=== PATIENT | male | born 1955 | race Caucasian/White ===

== ENCOUNTER → 2017-07-16 | Outpatient (CLI) | payer OTHER ==
--- NOTE | 2017-07-16 13:06 | RADIOLOGY REPORT PS360 ---
HIP LT 2-3V W/PELVIS IF PERFOR HISTORY: LT HIP PAIN, ACUTE LT LBP WITH SCIATICA ORDERING PHYSICIAN: Stephanie Wyman APRN PATIENT AGE: 61 years COMPARISON: None FINDINGS: No fracture or dislocation is evident. No significant degenerative change. No lytic or blastic change. Unremarkable soft tissues. There are generalized vascular calcifications. There is an os acetabulum on both sides as a variant of normal. IMPRESSION: Negative left hip
--- NOTE | 2017-07-16 13:48 | RADIOLOGY REPORT PS360 ---
EXAM: LUMBAR SPINE 5 VIEWS HISTORY: LT HIP PAIN, ACUTE LT LBP WITH SCIATICA ORDERING PHYSICIAN: Stephanie Wyman APRN PATIENT AGE: 61 years COMPARISON: None FINDINGS: There is normal alignment. No acute fracture or dislocation evident. Mild endplate osteophytes are present from L2 to S1 with slight decrease in the disc space at L4-L5. No lytic or blastic change. Incidental vascular calcifications are present within the aortoiliac vessels. IMPRESSION: 1. Mild lumbar spondylosis with mild degenerative disc disease at L4-5. 2. Atherosclerotic changes
== END ==
LOC: RAD 12:03
DX: M25.552 Pain in left hip (principal); M54.42 Lumbago with sciatica, left side

== ENCOUNTER → 2017-07-27 | Outpatient (CLI) | payer OTHER ==
[~2017-07-27] MED LIST: ALBUTEROL0.63 MG/3 IH; ALPRAZOLAM0.5 M3 PO; BACTRIM DS 8001 TA1 PO; HYDROCODONE1 TABLET PO; LISINOPRIL-HYDR1 TA2 PO; LISINOPRIL20 MG PO; LORTAB 5/3251 TAB PO; PREDNISONE 20MG20 MG PO; SERTRALINE 50MG50 MG PO; VENTOLIN H0.09 MG/Ac IH; ZITHROMAX Z-PA250 M1 PO
--- NOTE | 2017-07-27 13:54 | CARDIOVASCULAR REPORT ---
"Venous Exam Indications: 729.5 Pain in limb. IMPRESSIONS 1. There is no evidence of significant Reflux. 2. No evidence of deep or superficial vein thrombosis involving the left lower extremity History: Left lower extremity pain. Left lower extremity venous duplex evaluation. Doppler flow study including spectral analysis, color and anguiano scale imaging. Location: Vascular laboratory. Patient status: Outpatient. Tables: Venous flow and imaging: + +-------+ + |Location |Overall|Flow properties | + +-------+ + |Left common femoral |Patent |Normal phasicity; spontaneous; | | | |normal augmentation; compressible | + +-------+ + |Left saphenofemoral junction|Patent |Compressible | + +-------+ + |Left profunda femoral |Patent |Compressible | + +-------+ + |Left femoral |Patent |Normal phasicity; spontaneous; | | | |normal augmentation; compressible | + +-------+ + |Left greater saphenous |Patent |Normal phasicity; spontaneous; | | | |normal augmentation; compressible | + +-------+ + |Left popliteal |Patent |Normal phasicity; spontaneous; | | | |normal augmentation; compressible | + +-------+ + |Left posterior tibial |Patent |Compressible | + +-------+ + |Left peroneal |Patent |Compressible | + +-------+ + |Left gastrocnemius |Patent |Compressible | + +-------+ + |Left soleal |Patent |Compressible | + +-------+ + (Report amended ) Electronically signed by: Dutch Aldrich [id number]"
== END ==
LOC: RT 13:29
DX: R52 Pain, unspecified (principal); M79.605 Pain in left leg; R20.0 Anesthesia of skin

== ENCOUNTER → 2017-08-08 | Outpatient (CLI) | payer OTHER ==
--- NOTE | 2017-08-08 12:21 | CARDIOVASCULAR REPORT ---
"Arterial Exam Indications: PVD 433.9. 729.5 Pain in limb. Perpiheral arterial disease 443.9. IMPRESSIONS 1. Study suggests greater than 60% stenosis involving the left femoral artery 2. Study suggests less than 60% stenosis involving the right common femoral artery and the right femoral artery History: Left lower extremity pain. Claudication. Risk factors: Former smoker - years since quittinyr. Hypertension. Prior angiography/angioplasty. Labs, prior tests, procedures, and surgery: Peripheral stent ( right). Labs, prior tests, procedures, and surgery: Peripheral stent ( right). Bilateral lower extremity arterial duplex. Duplex scan and ankle-brachial indices. Height: Height: 175.3cm. Height: 69in. Weight: Weight: 93kg. Weight: 204.6lb. Body mass index: BMI: 30.3kg/m^2. Body surface area: BSA: 2.15m^2. Patient status: Outpatient. Tables: Arterial flow: + +--------+--------+ + |Location |V sys |V ed |Flow analysis| + +--------+--------+ + |Left common femoral |147cm/s |20.2cm/s|Triphasic | + +--------+--------+ + |Left deep femoral - proximal |57.3cm/s|--------|Biphasic | + +--------+--------+ + |Left femoral - proximal |260cm/s |--------|Triphasic | + +--------+--------+ + |Left femoral - mid |88.7cm/s|--------|Triphasic | + +--------+--------+ + |Left femoral - distal |92cm/s |--------|Biphasic | + +--------+--------+ + |Left popliteal - proximal |93.6cm/s|--------|Biphasic | + +--------+--------+ + |Left popliteal - distal |95cm/s |11.9cm/s|Monophasic | + +--------+--------+ + |Left posterior tibial - proximal |79.6cm/s|--------|Biphasic | + +--------+--------+ + |Left posterior tibial - mid |110cm/s |--------|Biphasic | + +--------+--------+ + |Left posterior tibial - distal |64.2cm/s|--------|Biphasic | + +--------+--------+ + |Left peroneal - distal |59.4cm/s|--------|Biphasic | + +--------+--------+ + |Right common femoral |192cm/s |18cm/s |Triphasic | + +--------+--------+ + |Right deep femoral - proximal |141cm/s |15.7cm/s|Triphasic | + +--------+--------+ + |Right femoral - proximal |156cm/s |18cm/s |Triphasic | + +--------+--------+ + |Right femoral - mid |113cm/s |25.8cm/s|Triphasic | + +--------+--------+ + |Right femoral - distal |134cm/s |--------|Triphasic | + +--------+--------+ + |Right popliteal - proximal |69.6cm/s|--------|Monophasic | + +--------+--------+ + |Right popliteal - distal |61.7cm/s|--------|Monophasic | + +--------+--------+ + |Right posterior tibial - proximal|83.1cm/s|--------|Monophasic | + +--------+--------+ + |Right posterior tibial - mid |83.1cm/s|--------|Biphasic | + +--------+--------+ + |Right posterior tibial - distal |77.5cm/s|--------|Biphasic | + +--------+--------+ + |Right peroneal - distal |53.9cm/s|--------|Monophasic | + +--------+--------+ + TANIA and Stress table: +--------+ |Stage | +--------+ |Baseline| +--------+ (Report amended ) Electronically signed by: Dutch Aldrich [id number]"
--- NOTE | 2017-08-08 16:55 | RADIOLOGY REPORT PS360 ---
ARTERIAL/ABO-XBHRSEYOMIO-BKG CLAUDICATION, former smoker, hypertension, hyperlipidemia, peripheral vascular disease, leg pain, bilateral rest pain and claudication ORDERING PHYSICIAN: Kalli Shane MD PATIENT AGE: 61 years TECHNIQUE: Segmental pressures obtained of both right and left leg. These are compared to brachial blood pressure to yield index at each level sampled including summary TANIA. The data sheets from the procedure are available in PACS FINDINGS Rest study only performed today No prior studies available for comparison. Blood pressures reported are in millimeters mercury. RIGHT LEG TANIA = 1.2. Brachial BP: 137 Thigh BP: 211 Calf BP: 200 Ankle PT: 213 Ankle DP : 173 Digit =86 LEFT LEG TANIA = 1.1 Brachial BPD: 180 Thigh BP: 191 Calf BP: 192 Ankle PT:202 Ankle DP: 160 Digit = 165 Pulses and waveforms: Abnormal due to motion There is blood pressure discrepancy seen between the left and right arms at the end the exam the right arm blood pressure is 155/102 and left arm blood pressure is 144/98. Initially there was a 40 3. Difference. Please correlate in office. If there remains a discrepancy then, CT angiogram of the aortic arch and subclavian arteries may be of further value. IMPRESSION: 1. Normal ABIs and pulses. Waveforms are abnormal due to motion. 2. Discrepancy in blood pressure in the upper extremities IMPRESSION: The ABIs as reported above are within normal limits. Waveforms and pulses are also unremarkable.
== END ==
LOC: RT 10:00
DX: I73.9 Peripheral vascular disease, unspecified (principal)